=== PATIENT | male | born 1995 | race Two or more races ===

== ENCOUNTER 2017-10-27 07:07 | Emergency (ER) | payer BC ==
[~2017-10-27] VITALS: Ht 177.8 cm; Wt 79.4 kg
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
--- NOTE | 2017-10-27 07:25 | NUR ---
[facility] AT BEDSIDE FOR REPORT.
[2017-10-27] MEDS ORDERED: TDAP [DIPH/PERTUSSIS/TET] 0.5 ML VIAL IM ONE ×2 (07:30→07:32)
[2017-10-27] MEDS ORDERED: LIDOCAINE HCL/PF 1% 30 ML VIAL TP ONE (07:30)
[2017-10-27] MEDS ORDERED: LIDOCAINE HCL/PF 1% 30 ML SDV ONE (07:31)
--- NOTE | 2017-10-27 07:36 | NUR ---
PATIENT NOW STATING HE HAS HAD THE TDAP VACCINE WITHIN THE PAST 5 YEARS. MD AT BEDSIDE STATING OKAY TO CANCEL TDAP. DR. ESCOBEDO AT BEDSIDE FOR SUTURES.
--- NOTE | 2017-10-27 07:50 | NUR ---
DR. ESCOBEDO STAPLED LEFT WRIST LAC, AND LEFT THIGH LAC. NO BLEEDING NOTED. WOUNDS WRAPPED WITH TEFLA AND KERLIX. WILL CONTINUE TO MONITOR.
[2017-10-27 08:00] VITALS: BP 147/64
--- NOTE | 2017-10-27 08:06 | NUR ---
Patient discharged to home in stable condition. Written and verbal after care instructions given. Patient verbalizes understanding of instruction.
== END 2017-10-27 08:03 | disposition home or self-care (01) ==
LOC: ER 07:08
DX: S71.112A Laceration without foreign body, left thigh, initial encounter (principal); S61.512A Laceration without foreign body of left wrist, initial encounter; V46.5XXA Car driver injured in collision with other nonmotor vehicle in traffic accident, initial encounter; Y93.89 Activity, other specified; Y92.410 Unspecified street and highway as the place of occurrence of the external cause; Y99.8 Other external cause status
CPT/HCPCS: 12002; 99284; A4606; A6402 ×2; A6403; J3490 ×2; Z7610; 90715